=== PATIENT | male | born 1965 | race Caucasian/White ===

== ENCOUNTER 2018-04-12 06:30 | Day surgery (SDC) | payer MEDICARE, OTHER ==
--- NOTE | 2018-04-12 08:07 | NUR ---
04/12/18 0807 Lea Morales 0802-PATIENT ARRIVED TO PACU ON 3L NC WEANED TO 2L NC O2 SAT 99% NONAROUSABLE. LAYING LEFT LATERAL ABDOMEN SOFT. IVF INFUSING. RR EVEN
--- NOTE | 2018-04-12 11:32 | OR ---
[facility] [place] [facility] [address], [place] [address] Signed DATE OF OPERATION: 04/12/2018 SURGEON: Khoi Whitmore MD PREOPERATIVE DIAGNOSES: 1. Anal pain with mucus. 2. Rectal bleeding. 3. Hemorrhoids. POSTOPERATIVE DIAGNOSES: 1. Moderate to large internal and external hemorrhoids, left greater than right. 2. Possible Altemeier procedure. PROCEDURE: Colonoscopy without biopsy. ESTIMATED BLOOD LOSS: None. INDICATIONS: Nidhi is a 52-year-old gentleman who was asked to see me for what sounds like hemorrhoids. He has talked about trouble with his anus for quite some time. He said he has a lot of anal pain and bleeding of bright red blood. He said it is always lots of mucus. He said it is not uncommon for tissue to come out and he has to push it back inside. He thought it could be circumferential so that brings up the concern of rectal prolapse. He said in [place], he underwent a colonoscopy around age 45 ended up with some banding of his hemorrhoids, and then he was in [place] and had some type of stitching of an internal hemorrhoid hoping that would take care of his issue. He said neither one seemed to help much. He said he is now disabled because of his neck. He has been having a lot of trouble with the bowel movements as stated above. In fact, he has enough pain that affects his urinating. He said there was no family history of colon cancer or polyps. In the office, we had a long discussion regarding his findings. He wanted me to perform a colonoscopy and on return he said he would feel more comfortable with a formal rectal exam. I had given him our handout on hemorrhoids and we looked at that carefully and I circled the sections relevant to him. We also reviewed colonoscopy in detail. He understands the nature of that test along with its risks including, but not limited to gas, bloating, crampy abdominal pain, bleeding, perforation, requiring surgery, and missed diagnosis. He is also extremely anxious and we were not sure how he would respond to our routine Versed and fentanyl. He said he does suffer with anxiety and panic attacks. He said that I explained to Nidhi if the Electronically Signed By: KHOI WHITMORE MD 04/12/18 1132 PATIENT NAME: NIDHI CLARK OPERATIVE REPORT DATE OF : 69 REPORT #: [id number] PHYSICIAN: KHOI WHITMORE MD PCP: Wali Bowles PA-C REPORT IS CONFIDENTIAL AND NOT TO BE RELEASED WITHOUT AUTHORIZATION [facility] [address] [place] [id number] Signed Versed and fentanyl were not enough, he might have to reschedule with an anesthesia provider. He had expressed understanding and wish to proceed. PROCEDURE NOTE: Nidhi was taken into our endoscopy suite and placed in the left lateral decubitus position. He was given divided doses of 12 mg of Versed and 200 mcg of fentanyl. Even then he woke up frequently and was able to talk to us and obviously was quite anxious. I think in the future, he would be much better served with monitored anesthesia care and a propofol infusion. Rectal exam had been done and he clearly has circumferential external hemorrhoids with the left being larger than the right and with gentle traction, you can see the beefy hemorrhoid tissue come out of the anal canal and unsure this leads to his rectal bleeding and his mucus and his pain. He had moderate tone under sedation, which is common. No masses otherwise noted. Prostate seems to be fine. The adult colonoscope was introduced and advanced all around into the cecum under direct visualization of the camera without difficulty. Fortunately, he is very easy to scope from a technical standpoint. Nevertheless, he did require significant amount of sedation. The scope was then slowly withdrawn. We saw no pathology throughout the entire colon or rectum. I did see a circumferential scar up around 8-10 cm and it makes wonder if he underwent an Altemeier procedure. Although, he does not describe that in the office. I will ask again in followup and then once the scope was retroflexed, we could see he does have moderate to large internal hemorrhoid columns as well. After this, the gas was suctioned out and the colonoscope removed. Overall, Nidhi tolerated his procedure fine. RECOMMENDATIONS: I will see Nidhi in my office in 7 to 14 days to review his results. I will ask him about all the possible Altemeier procedure, but I think his problem is all related to hemorrhoids. He may be a candidate for not only the PPH stapler, but some formal hemorrhoidectomy as well. MD CJ Nowak/SUZAN /[id number] cc: Wali Bowles PA-C Electronically Signed By: KHOI WHITMORE MD 04/12/18 1132 PATIENT NAME: NIDHI CLARK OPERATIVE REPORT DATE OF : 69 REPORT #: [id number] PHYSICIAN: KHOI WHITMORE MD PCP: Wali Bowles PA-C REPORT IS CONFIDENTIAL AND NOT TO BE RELEASED WITHOUT AUTHORIZATION [facility] [address] [place], [place] [address] Signed Khoi Whitmore MD Copies: Wali Bowles PA-C, ANDREW L MD ~ Electronically Signed By: KHOI WHITMORE MD 04/12/18 1132 PATIENT NAME: NIDHI CLARK Jelly OPERATIVE REPORT DATE OF : 69 REPORT #: [id number] PHYSICIAN: KHOI WHITMORE MD PCP: Wali Bowles PA-C REPORT IS CONFIDENTIAL AND NOT TO BE RELEASED WITHOUT AUTHORIZATION
== END 2018-04-12 08:55 | disposition home or self-care (01) ==
LOC: DS 06:30 → OPS 06:30 → DS 06:45 → OPS 06:45
PROVIDERS: Colon & Rectal Surgery
PROC: 0DJD8ZZ Inspection of Lower Intestinal Tract, Via Natural or Artificial Opening Endoscopic (ICD-10-PCS; principal; 2018-04-12 06:45)
DX: K64.8 Other hemorrhoids (principal); K64.4 Residual hemorrhoidal skin tags; F17.210 Nicotine dependence, cigarettes, uncomplicated
CPT/HCPCS: 99153; G0500; J2250; J3010; J7120